=== PATIENT | female | born 1955 | race Caucasian/White ===

== ENCOUNTER 2016-06-26 09:26 | Outpatient (CLI) | payer OTHER | END 2016-06-26 09:27 | disposition home or self-care (01) | DX: K80.20 Calculus of gallbladder without cholecystitis without obstruction (principal); R10.9 Unspecified abdominal pain | CPT/HCPCS: 78226; A9537 ==

== ENCOUNTER 2016-07-24 11:54 | Outpatient (CLI) | payer OTHER | END 2016-07-24 11:55 | disposition home or self-care (01) | DX: Z01.810 Encounter for preprocedural cardiovascular examination (principal) ==

== ENCOUNTER 2016-07-29 06:10 | Day surgery (SDC) | payer OTHER ==
[2016-07-29] MEDS ORDERED: ceFAZolin 2 GM/50 ML 50 ML IV ONE (06:28)
[2016-07-29] MEDS ORDERED: LACTATED RINGERS 1,000 ML IV ONE ×2 (07:01→10:22)
[2016-07-29] MEDS ORDERED: IPRATROPIUM/ALBUTEROL 3 ML NEB INH ONE (07:30)
[2016-07-29] MEDS ORDERED: BUPIVACAINE 0.5% PF 30 ML VIAL INFIL ONE ×2 (08:14)
[2016-07-29] MEDS ORDERED: LIDOCAINE-MPF 2% 5 ML VIAL IM ONE (08:29)
[2016-07-29] MEDS ORDERED: SUCCINYLCHOLINE 200 MG/10 ML VIAL IVP ONE (08:29)
[2016-07-29] MEDS ORDERED: fentaNYL 100 MCG/2 ML VIAL IVP ONE (08:29)
[2016-07-29] MEDS ORDERED: METOPROLOL 5 MG/5 ML VIAL IVP ONE (08:29)
[2016-07-29] MEDS ORDERED: ROCURONIUM 50 MG/5 ML VIAL IVP ONE (08:29)
[2016-07-29] MEDS ORDERED: NEOSTIGMINE 1 MG/1 ML 10 ML MDV IVP ONE (08:29)
[2016-07-29] MEDS ORDERED: ONDANSETRON 4 MG/2 ML VIAL IVP ONE (08:29)
[2016-07-29] MEDS ORDERED: DEXAMETHASONE 4 MG/ML VIAL IVP ONE (08:29)
[2016-07-29] MEDS ORDERED: MIDAZOLAM 2 MG/2 ML VIAL IVP ONE (08:29)
[2016-07-29] MEDS ORDERED: GLYCOPYRROLATE 1 MG/5 ML VIAL IVP ONE (08:29)
[2016-07-29] MEDS ORDERED: PROPOFOL 200 MG/20 ML VIAL IVP ONE (08:29)
[2016-07-29] MEDS: fentaNYL 100 MCG/2 ML VIAL ONE ×2 (09:36→09:44)
[2016-07-29] MEDS: HYDROmorphone 1 MG/ML SYRINGE ONE ×2 (09:58→10:13)
[2016-07-29] MEDS ORDERED: KETOROLAC 15 MG/ML VIAL ONE (10:44)
[2016-07-29] MEDS ORDERED: HYDROmorphone 1 MG/ML SYRINGE ONE (11:05)
[2016-07-29] MEDS ORDERED: oxyCOD/ACETAMIN 5 MG/325 MG TABLET PO ONE (11:29)
== END 2016-07-29 06:11 | disposition home or self-care (01) ==
PROC: 0FT44ZZ Resection of Gallbladder, Percutaneous Endoscopic Approach (ICD-10-PCS; principal; 2016-07-29 07:30)
DX: K80.10 Calculus of gallbladder with chronic cholecystitis without obstruction (principal); G47.33 Obstructive sleep apnea (adult) (pediatric); J45.909 Unspecified asthma, uncomplicated; I10 Essential (primary) hypertension; E66.9 Obesity, unspecified; Z68.42 Body mass index [BMI] 45.0-49.9, adult; Z79.82 Long term (current) use of aspirin; Z87.891 Personal history of nicotine dependence; Z98.1 Arthrodesis status; Z88.0 Allergy status to penicillin
CPT/HCPCS: 47562; A9270; J1170; J7120; J7620

== ENCOUNTER 2017-02-20 10:31 | Outpatient (CLI) | payer OTHER ==
--- NOTE | 2017-02-23 13:40 | Mammography Report ---
DIGITAL SCREENING MAMMOGRAM: 02/20/2017 CLINICAL INDICATION: A 61-year-old with history of late childbearing for screening. COMPARISON: 07/2014, 12/2012, 06/2010 TECHNIQUE: Routine CC and MLO projections were obtained of the breasts. FINDINGS: Parenchymal tissue within the breasts is predominantly fatty replaced. There are no domina nt masses, suspicious microcalcifications, or secondary signs of malignancy. In comparison to the pre vious studies, there are no significant changes. IMPRESSION: NO MAMMOGRAPHIC EVIDENCE OF MALIGNANCY. NO SIGNIFICANT INTERVAL CHANGES. RECOMMENDATION: Screening mammography is recommended annually. BIRADS category 1 - negative. STANDARD QUALIFYING STATEMENTS 1. This examination was reviewed with the aid of Computed-Aided Detection (CAD). 2. A negative or benign imaging report should not delay biopsy if clinically suspicious findings are present. Consider surgical consultation if warranted. More than 5% of cancers are not identified by i maging. 3. Dense breasts may obscure an underlying neoplasm. 13:9:44 JOB #: [id number] EXT JOB #:[id number]
== END 2017-02-20 10:32 | disposition home or self-care (01) ==
LOC: DI.S 10:31
PROVIDERS: ATTEND Physician Assistant
DX: Z12.31 Encounter for screening mammogram for malignant neoplasm of breast (principal)
CPT/HCPCS: 77067

== ENCOUNTER 2017-10-02 09:57 | Outpatient (CLI) | payer OTHER ==
[2017-10-02 19:00] LABS: THYROID STIMULATING HORMONE 5.23 uIU/mL (0.34-5.60)
[2017-10-02 19:02] LABS: FREE T4 (FREE THYROXINE) 0.79 ng/dL (0.58-1.64)
[2017-10-02 19:07] LABS: ALBUMIN 3.8 g/dL (3.2-5.5); ALBUMIN/GLOBULIN RATIO 1.1 (1.0-2.2); ALKALINE PHOSPHATASE 58 IU/L (42-121); ALT ALANINE AMINOTRANSFERASE 25 IU/L (10-60); AST ASPARTATE AMINOTRANSFERASE 22 IU/L (10-42); BILIRUBIN,TOTAL 0.9 mg/dL (0.2-1.0); BUN - BLOOD UREA NITROGEN 15 mg/dL (6-20); CALCIUM 9.4 mg/dL (8.5-10.3); CARBON DIOXIDE - CO2 28 mmol/L (21-32); CHLORIDE 103 mmol/L (101-111); CHOL/HDL RATIO 2.5 (<4.4); CHOLESTEROL 160 mg/dL; CREATININE 0.6 mg/dL (0.4-1.0); GFR - MDRD 101 (>89); GLUCOSE 101 mg/dL (70-100); HDL CHOLESTEROL 63 mg/dL; LDL CHOLESTEROL,CALCULATED 79 mg/dL; LDL/HDL RATIO 1.3 (<4.4); MAGNESIUM 2.2 mg/dL (1.7-2.8); SODIUM 139 mmol/L (135-145); TOTAL PROTEIN 7.2 g/dL (6.7-8.2); VLDL CHOLESTEROL 18 mg/dL
== END 2017-10-02 09:58 | disposition home or self-care (01) ==
LOC: LAB.F 09:57
PROVIDERS: ATTEND Internal Medicine Cardiovascular Disease
DX: Z79.899 Other long term (current) drug therapy (principal)
CPT/HCPCS: 36415; 80053; 80061; 83721; 83735; 84439; 84443

== ENCOUNTER 2017-11-26 11:00 | Outpatient (CLI) | payer OTHER ==
--- NOTE | 2017-11-26 12:56 | Ultrasound Report ---
Procedure Date: 11/26/2017 Accession Number: [id number] / [id number] Procedure: US - Transvaginal CPT Code: FULL RESULT: EXAM: Transvaginal DATE: 11/26/2017 12:36 PM CLINICAL HISTORY: R OVARIAN CYST TECHNIQUE: Real-time scanning was performed with technology sales representative static images obtained. COMPARISON: Pelvic ultrasound 11/29/2015, CT abdomen and pelvis 08/07/2015. FINDINGS: Examination is limited by the patient's body habitus. The uterus measures 5.3 x 2.3 x 2.6 cm for an estimated volume of 17 mL. The endometrium measures 4 mm and appears otherwise unremarkable. No uterine masses detected. The right ovary measures 3.9 x 2.9 x 2.7 cm for a volume of 16 mL. Within the right ovary is a 2.9 x 2.1 x 2.3 cm simple appearing cyst without solid component or vascularity on color Doppler. The left ovary is not confidently identified. What is felt to represent the ovary measures 1.8 x 1.6 x 0.9 cm for a volume of 1.4 mL. IMPRESSION: Persistent right adnexal cyst without solid component or vascularity on color Doppler in a postmenopausal patient.
== END 2017-11-26 11:01 | disposition home or self-care (01) ==
LOC: DI 11:00
PROVIDERS: ATTEND Physician Assistant
DX: N83.201 Unspecified ovarian cyst, right side (principal)
CPT/HCPCS: 76830

== ENCOUNTER 2019-07-06 13:46 | Outpatient (CLI) | payer MEDICARE, OTHER ==
--- NOTE | 2019-07-13 11:59 | Mammography Report ---
Reason: ROUTINE MAMMO Procedure Date: 07/06/2019 Accession Number: [id number] / [id number] Procedure: [facility] - Screening Mammo w/Antoni CPT Code: Final Report FULL RESULT: EXAM: Screening Mammo w/Antoni DATE: 07/06/2019 2:30 PM CLINICAL HISTORY: Screening encounter. History of late childbearing. TECHNIQUE: (B) - Bilateral CC, laterally exaggerated CC, MLO views were obtained. COMPARISON: 02/20/2017 through 04/11/2011. PARENCHYMAL PATTERN: (A) - The breast(s) demonstrate(s) scattered fibroglandular densities. FINDINGS: There are no suspicious masses, calcifications, or areas of distortion. IMPRESSION: Negative examination. BI-RADS category 1. RECOMMENDATION: (ANNUAL) - Recommend routine annual screening mammography. BI-RADS CATEGORY: (1) - Negative. STANDARD QUALIFYING STATEMENTS: 1. This examination was not reviewed with the aid of Computer-Aided Detection (CAD). 2. A negative or benign imaging report should not preclude biopsy if clinically suspicious findings are present. 3. Dense breasts may obscure an underlying neoplasm. 4. This examination was reviewed with the aid of 3D breast imaging (tomosynthesis).
== END 2019-07-06 13:47 | disposition home or self-care (01) ==
LOC: DI 13:46
PROVIDERS: ATTEND Physician Assistant
DX: Z12.31 Encounter for screening mammogram for malignant neoplasm of breast (principal)
CPT/HCPCS: 77063; 77067

== ENCOUNTER 2020-03-03 12:27 | Outpatient (CLI) | payer OTHER ==
[2020-03-03 14:01] LABS: HGB - HEMOGLOBIN 11.3 g/dL (12.0-16.0); MEAN CORPUSCULAR HEMOGLOBIN 30.1 pg (27.0-31.0); MEAN CORPUSCULAR HGB CONC 31.1 g/dL (32.0-36.0); MEAN CORPUSCULAR VOLUME 96.8 fL (81.0-99.0); MEAN PLATELET VOLUME 11.1 fL (7.9-10.8); RED BLOOD COUNT 3.75 10^6/uL (4.20-5.40); WHITE BLOOD COUNT 5.5 x10^3/uL (4.8-10.8)
[2020-03-03 14:20] LABS: ALBUMIN 3.6 g/dL (3.2-5.5); ALBUMIN/GLOBULIN RATIO 0.9 (1.0-2.2); BILIRUBIN,TOTAL 0.8 mg/dL (0.2-1.0); CALCIUM 9.5 mg/dL (8.5-10.3); CREATININE 0.8 mg/dL (0.4-1.0); TOTAL PROTEIN 7.5 g/dL (6.7-8.2)
== END 2020-03-03 12:28 | disposition home or self-care (01) ==
LOC: LAB.S 12:27
PROVIDERS: ATTEND Emergency Medicine
DX: R60.9 Edema, unspecified (principal); R06.00 Dyspnea, unspecified
CPT/HCPCS: 36415; 80053; 83880; 85027

== ENCOUNTER 2020-03-22 11:25 | Outpatient (CLI) | payer MEDICARE, OTHER | END 2020-03-22 11:26 | disposition home or self-care (01) | LOC: RT 11:25 | PROVIDERS: ATTEND Internal Medicine Cardiovascular Disease | DX: I49.9 Cardiac arrhythmia, unspecified (principal) | CPT/HCPCS: 93005 ==